=== PATIENT | male | born 1955 | race Caucasian/White ===

== ENCOUNTER → 2021-07-20 | Outpatient (CLI) | payer MEDICARE, OTHER ==
[2014-07-01 10:19] VITALS: BP 158/93
[~2021-07-20] MED LIST: CHOL500016 PO; ESOM40CA PO; FINA5TAB4 PO; NAPR220T70 PO
--- NOTE | 2021-07-20 09:52 | KCIC ---
Orbits radiograph 07/20/2021 9:25 AM INDICATION: Foreign body COMPARISON: None available TECHNIQUE: 2 views of the orbits provided. FINDINGS: No radiopaque foreign density is identified in the orbits. No acute fracture is identified. Visualize d paranasal sinuses appear well aerated. IMPRESSION: No radiopaque foreign density is identified. Electronically signed by: Elizabeth Means MD (07/20/2021 9:49 AM) [id number]
--- NOTE | 2021-07-20 11:07 | KCIC ---
MR LUMBAR SPINE [id number] History: Reason: LEFT HIP AND BACK PAIN / Spl. Instructions: / History: LBP into left hip and around to groin in recent weeks. NKI. Technique: Multiplanar, multi sequential MR imaging was performed of the lumbar spine. Comparison: None Findings: Rounded heterogeneous lesion within the left psoas muscle at the L2 level measures 1.5 x 1.2 cm. Ther e is mild adjacent edema within the muscle. L1 vertebral body lesions measures 2.1 x 1.7 cm and 1.5 x 1.2 cm. Additional lesion within T12 verteb ral body measures 0.7 cm. Mild rightward curvature the lumbar spine centered at L3. No acute fracture. Mild retrolisthesis L4 o n L5 and L2 on L3. Conus terminates at the normal location. No evidence of nerve root clumping. L1-L2: Small disc bulge. No canal narrowing. No neuroforaminal narrowing. L2-L3: Mild retrolisthesis. Posterior disc osteophyte complex. Moderate facet arthropathy. Ligament o f flavum thickening. Subarticular recess narrowing, left greater than right. Abutment of the descendi ng left L3 nerve root. No canal narrowing. Mild left neuroforaminal narrowing. L3-L4: Posterior disc osteophyte complex. Subarticular recess narrowing greatest on the left. Abutme nt of the descending L4 nerve roots. Moderate facet arthropathy. Ligament of flavum thickening. Minim al canal narrowing. Mild left neuroforaminal narrowing. L4-L5: Mild retrolisthesis. Posterior disc osteophyte complex. Mild canal narrowing. Subarticular rec ess narrowing, right greater than left. Slight abutment of the descending L5 nerve roots. Moderate fa cet arthropathy, right greater than left. Moderate right and mild left neuroforaminal narrowing. L5-S1: Minimal disc bulge. Moderate facet arthropathy. No canal narrowing. Moderate right and mild l eft neuroforaminal narrowing. Impression: 1. Indeterminate left psoas intramuscular lesion with mild adjacent edema. Recommend post contrast i maging to further assess. 2. T12 and L1 vertebral body lesions, may represent atypical hemangiomas in the absence of concern f or malignancy. Recommend attention on follow-up postcontrast images. 3. Moderate multilevel lumbar spinal stenosis with some reticular recess narrowing and abutment of d escending nerve roots, as described. 4. Neuroforaminal narrowing most prominent right L4-5 and L5-S1. Electronically signed by: Topher Ma DO (07/20/2021 11:05 AM) [id number]
== END ==
LOC: KCIC MRI 09:06
PROVIDERS: ATTEND Physician Assistant Medical
DX: M47.817 Spondylosis without myelopathy or radiculopathy, lumbosacral region (principal); M48.07 Spinal stenosis, lumbosacral region; M25.78 Osteophyte, vertebrae; M25.552 Pain in left hip
CPT/HCPCS: 70030; 72148